=== PATIENT | female | born 1970 | race Caucasian/White ===

== ENCOUNTER 2016-08-20 19:37 | Emergency (ER) | payer MEDICAID ==
[~2016-08-20] VITALS: Ht 162.6 cm; Wt 86.6 kg
[2016-08-21 00:47] VITALS: BP 178/82
== END 2016-08-21 00:47 | disposition home or self-care (01) ==
LOC: ED 19:37
DX: J02.9 Acute pharyngitis, unspecified (principal); F45.8 Other somatoform disorders; I10 Essential (primary) hypertension
CPT/HCPCS: J1100; J1885

== ENCOUNTER 2016-12-17 09:15 | Emergency (ER) | payer MEDICAID ==
[~2016-12-17] VITALS: Ht 162.6 cm; Wt 88.9 kg
[2016-12-17 10:55] LABS: microscopic required? YES; urine erythrocyte 3+ (NEGATIVE)
[2016-12-17 12:46] VITALS: BP 168/101
== END 2016-12-17 12:47 | disposition home or self-care (01) ==
LOC: ED 09:15
PROVIDERS: Emergency Medicine
DX: N93.8 Other specified abnormal uterine and vaginal bleeding (principal); I10 Essential (primary) hypertension; J45.909 Unspecified asthma, uncomplicated; Z88.8 Allergy status to other drugs, medicaments and biological substances

== ENCOUNTER 2017-08-13 23:49 | Emergency (ER) | payer MEDICAID ==
[~2017-08-13] VITALS: Ht 165.1 cm; Wt 88.5 kg
[2017-08-13 23:53] VITALS: Ht 165.1 cm; Wt 88.5 kg
[2017-08-14 01:27] VITALS: BP 136/86
== END 2017-08-14 01:27 | disposition home or self-care (01) ==
LOC: ED 23:49
DX: M51.36 Other intervertebral disc degeneration, lumbar region (principal); M43.16 Spondylolisthesis, lumbar region; J45.909 Unspecified asthma, uncomplicated; I10 Essential (primary) hypertension; Z88.8 Allergy status to other drugs, medicaments and biological substances
CPT/HCPCS: J1885

== ENCOUNTER 2019-07-18 17:19 | Emergency (ER) | payer OTHER ==
[~2019-07-18] VITALS: Ht 162.6 cm; Wt 93.0 kg
[2019-07-18 17:30] VITALS: BP 203/103; Ht 162.6 cm; Wt 93.0 kg
== END 2019-07-18 20:11 | disposition left against medical advice (07) ==
LOC: ED 17:19
DX: J45.909 Unspecified asthma, uncomplicated (principal); I10 Essential (primary) hypertension; Z88.8 Allergy status to other drugs, medicaments and biological substances
CPT/HCPCS: 36415; 87804